=== PATIENT | male | born 2000 | race Asian ===

== ENCOUNTER 2019-08-18 13:10 | Emergency (ER) | payer SELFPAY ==
--- NOTE | 2019-08-18 14:11 | UC ---
Hand/Wrist HPI - HPI Summary HPI Summary: 19 yo male presents with RIGHT wrist injury. He tells me that yesterday he was lifting weights and went to put a herbarium curator on the rack when it twisted. His right wrist was pulled towards the radial aspect. Since that time has had pain at the ulnar aspect of his wrist. He has rested and applied ice. Nothing OTC for pain. He is LEFT handed. Denies numbness or tingling. - History Of Current Complaint Chief Complaint: UCUpperExtremity Stated Complaint: RIGHT WRIST INJURY Time Seen by Provider: 08/18/19 14:10 Hx Obtained From: Patient Onset/Duration: Sudden Onset Severity Initially: Mild Severity Currently: Mild Pain Intensity: 2 Pain Scale Used: 0-10 Numeric - Allergies/Home Medications Allergies/Adverse Reactions: Allergies Allergy/AdvReac Type Severity Reaction Status Date / Time No Known Allergies Allergy Verified 08/18/19 14:07 Home Medications: Home Medications NK [No Home Medications Reported] 08/18/19 [History Confirmed 08/18/19] PMH/Surg Hx/FS Hx/Imm Hx - Additional Past Medical History Additional PMH: None - Surgical History Surgical History: None - Family History Known Family History: Positive: None - Social History Occupation: Student Lives: With Family Alcohol Use: Occasionally Substance Use Type: None Smoking Status (MU): Never Smoked Tobacco Review of Systems All Other Systems Reviewed And Are Negative: No Constitutional: Positive: Negative Skin: Positive: Negative Respiratory: Positive: Negative Cardiovascular: Positive: Negative Neurovascular: Positive: Negative Musculoskeletal: Positive: Other: - left wrist pain Neurological: Positive: Negative Psychological: Positive: Negative Physical Exam - Summary Physical Exam Summary: GENERAL: NAD. WDWN. No pain distress. SKIN: No rashes, sores, lesions, or open wounds. CHEST: No accessory muscle use. Breathing comfortably and in no distress. CV: Pulses intact radial and ulnar. Cap refill <2seconds MSK: RIGHT WRIST: Mild ttp about ulnar aspect. FROM. Pain with supination and pronation. Strength 5/5 including shelter director strength. No edema or obvious bony deformities. No snuffbox tenderness. NEURO: Alert. Sensations intact hand and all fingers. PSYCH: Age appropriate behavior. Triage Information Reviewed: Yes Vital Signs: Initial Vital Signs Temp 98.2 F 08/18/19 14:04 Pulse 56 08/18/19 14:04 Resp 16 08/18/19 14:04 BP 126/74 08/18/19 14:04 Pulse Ox 99 08/18/19 14:04 Vital Signs Reviewed: Yes Diagnostics - Radiology Wrist XR Radiology Interpretation Completed By: Radiologist Summary of Radiographic Findings: IMPRESSION: NO ACUTE OSSEOUS INJURY. IF SYMPTOMS PERSIST, RECOMMEND REPEAT IMAGING. Hand/Wrist Course/Dx - Course Course Of Treatment: XR as above. Suspect strain/sprain. Pt placed in a cock-up splint and advised to RICE. May take tylenol/ibuprofen as directed for discomfort. F/u with [facility] if symptoms do not improve - Differential Dx/Diagnosis Provider Diagnosis: Wrist sprain Discharge ED - Sign-Out/Discharge Documenting (check all that apply): Patient Departure All imaging exams completed and their final reports reviewed: Yes - Discharge Plan Condition: Stable Disposition: HOME Patient Education Materials: Wrist Sprain (ED) Referrals: No Primary Care Phys,NOPCP [Primary Care Provider] - [facility] [Provider Group] - If Needed Additional Instructions: If you develop a fever, shortness of breath, chest pain, new or worsening symptoms - please call your PCP or go to the ED immediately. 1) The X-ray of your wrist was normal today. 2) Use the wrist brace for comfort and rest, ice, and elevate your wrist to reduce pain 3) May take tylenol/ibuprofen as directed for discomfort 4) If your wrist does not improve within 1 week, please call [facility] at the number below to schedule an appointment for a recheck - Billing Disposition and Condition Condition: STABLE Disposition: Home
== END 2019-08-18 14:25 | disposition home or self-care (01) ==
LOC: UCEAST 13:10
DX: S63.501A Unspecified sprain of right wrist, initial encounter (principal); X50.1XXA Overexertion from prolonged static or awkward postures, initial encounter; Y92.9 Unspecified place or not applicable
CPT/HCPCS: 99202; G0463